=== PATIENT | female | born 1950 | race Caucasian/White ===

== ENCOUNTER 2021-02-24 11:14 | Inpatient (IN) | payer MEDICARE ==
[~2021-02-24] VITALS: Ht 154.9 cm; Wt 36.7 kg
--- NOTE | 2021-02-24 17:12 | EKG ---
[facility] [address] [facility] [place], [place] [address] Signed Normal sinus rhythm Anterior infarct , age undetermined Abnormal ECG No previous ECGs available Confirmed by SAMINA BROWN DO ([id number]) on 02/24/2021 5:12:48 PM Electronically Signed By: SAMINA BROWN DO 02/24/21 1712 PATIENT NAME: ALLAN LONDON Electrocardiogram DATE OF : 50 PHYSICIAN: SAMINA BROWN DO REPORT #: [id number] REPORT IS CONFIDENTIAL AND NOT TO BE RELEASED WITHOUT AUTHORIZATION
[2021-02-26] MEDS ORDERED: AMLODIPINE BESY10 MG PO (12:00)
[2021-02-26] MEDS ORDERED: METOPROLOL TART25 MG PO (12:00)
[2021-02-26] MEDS ORDERED: VITAMIN D3125 MCG PO (12:31)
[2021-02-26] MEDS ORDERED: CALCIUM500 MG PO (12:31)
[2021-02-26] MEDS ORDERED: MULTI VITAMIN1 EACH PO (12:31)
[2021-02-26] MEDS ORDERED: ZINC50 MG PO (12:32)
[2021-02-26] MEDS ORDERED: VITAMIN E400 UNI5 PO (12:32)
[2021-02-26] MEDS ORDERED: VITAMIN A10000 UNI2 PO (12:33)
[2021-02-26] MEDS ORDERED: FOLIC ACID0.4 MG PO (12:33)
[2021-02-26] MEDS ORDERED: VITAMIN B-121000 MCG PO (12:33)
== END 2021-02-26 13:18 | disposition home or self-care (01) | DRG 683 ==
LOC: ED 11:14 → MS 17:04
PROVIDERS: ADMIT Student in an Organized Health Care Education/Training Program; ATTEND Student in an Organized Health Care Education/Training Program
DX: N17.9 Acute kidney failure, unspecified (principal); R64 Cachexia; E83.52 Hypercalcemia; I10 Essential (primary) hypertension; R11.10 Vomiting, unspecified; R19.7 Diarrhea, unspecified; R63.0 Anorexia; U09.9 Post COVID-19 condition, unspecified; E83.41 Hypermagnesemia; Z98.890 Other specified postprocedural states; Z20.822 Contact with and (suspected) exposure to COVID-19; F17.210 Nicotine dependence, cigarettes, uncomplicated; D64.9 Anemia, unspecified; E87.5 Hyperkalemia; E86.0 Dehydration
CPT/HCPCS: 74176; 80048; 80053; 81001; 82570; 82803; 83690; 83735; 84156; 85025; 85651; 93005; 93010; 97161; C9803; J1644; J3480; J7060; J7121; U0003

== ENCOUNTER 2023-12-20 15:42 | Emergency (ER) | payer MEDICARE ==
[~2023-12-20] VITALS: Ht 154.9 cm; Wt 34.5 kg
[~2023-12-20 15:42] MED LIST: AMLODIPINE BESY10 MG PO; CALCIUM500 MG PO; FOLIC ACID0.4 MG PO; METOPROLOL TART25 MG PO; MULTI VITAMIN1 EACH PO; VITAMIN A10000 UNI2 PO; VITAMIN B-121000 MCG PO; VITAMIN D3125 MCG PO; VITAMIN E400 UNI5 PO; ZINC50 MG PO
[2023-12-20 16:49] LABS: BASOPHILS 0.7 % (0-2); EOSINOPHILS 0.5 % (0-6); HEMATOCRIT 34.1 % (35.0-50.0); HEMOGLOBIN 11.6 g/dL (12.0-18.0); LYMPHOCYTES 20.8 % (24-44); MCH 31.9 (27-36); MCHC 34.2 g/dl (30-36); MCV 93.4 fl (81-99); MONOCYTES 5.9 % (0-12); NEUTROPHILS 72.1 % (39-80); PLATELET COUNT 424 K/uL (140-440); RBC 3.65 M/ul (4.3-5.7); RDW 13.2 (10.5-15.0)
[2023-12-20 17:08] LABS: ALBUMIN/GLOBULIN RATIO 1.43 (1.1-2.4); BILIRUBIN, TOTAL 0.5 ng/dL (0.2-1.0); BUN/CREATININE RATIO 12.87 (6.0-28.6); CALCIUM 9.8 mg/dL (8.5-10.1); CREATININE, SERUM 1.01 mg/dL (0.55-1.02); MAGNESIUM 1.8 mg/dL (1.8-2.4); PROTEIN, TOTAL 6.8 g/dL (6.4-8.2)
[2023-12-20] MEDS ORDERED: SODIUM CHLORIDE 0.9% 1,000 ML IV ONE (17:15)
[2023-12-20 18:24] LABS: BILIRUBIN, URINE NEGATIVE (negative); BLOOD/HGB, URINE NEGATIVE (Negative); KETONE, URINE NEGATIVE (Negative); LEUK ESTERASE, URINE NEGATIVE (negative); NITRITE, URINE NEGATIVE (negative); PH, URINE 7.5 (5-7)
[2023-12-20] MEDS ORDERED: ONDANSETRON ODT8 MG PO (19:22)
[2023-12-20 19:46] VITALS: BP 151/93
--- NOTE | 2023-12-21 13:54 | EKG ---
[facility] [address] [facility] [place], [place] [address] Signed Sinus bradycardia Septal infarct (cited on or before 24-FEB-2021) Abnormal ECG When compared with ECG of 24-FEB-2021 13:56, T wave inversion no longer evident in Anterior leads Confirmed by Jo Payton MD ([id number]) on 12/21/2023 1:54:02 PM Electronically Signed By: JO PAYTON 12/21/23 1354 PATIENT NAME: JUAN JOSÉ LONDONVIRGIL CRUZ Electrocardiogram DATE OF : 50 PHYSICIAN: JO PAYTON REPORT #: [id number] REPORT IS CONFIDENTIAL AND NOT TO BE RELEASED WITHOUT AUTHORIZATION
== END 2023-12-20 19:38 | disposition home or self-care (01) ==
LOC: ED 15:42
PROVIDERS: Emergency Medicine
DX: R10.9 Unspecified abdominal pain (principal); R63.4 Abnormal weight loss; R11.2 Nausea with vomiting, unspecified; Z68.1 Body mass index [BMI] 19.9 or less, adult; Z79.899 Other long term (current) drug therapy
CPT/HCPCS: 36415; 71045; 80053; 81003; 83690; 83735; 84484; 85025; 93005; 93010; 96360; 96361; 99284-25; J7030

== ENCOUNTER 2024-02-08 12:33 | Day surgery (SDC) | payer MEDICARE ==
[2024-02-06 14:11] VITALS: BP 163/94
[~2024-02-08] VITALS: Ht 154.9 cm; Wt 28.5 kg
[~2024-02-08 12:33] MED LIST changes: +CELECOXIB200 MG PO; +IBLOOD GLUCOSE TEST STRIP 1 EA TEST VI PRN; +LACTATED RINGER'S 1,000 ML IV SCH; +LIDOCAINE HCL 1% 5 ML SDV INJ ONE; +OMEPRAZOLE20 MG PO; +ONDANSETRON ODT8 MG PO; +TRAMADOL HCL50 MG PO
[2024-02-08 13:04] VITALS: BP 153/83
[2024-02-08] MEDS ORDERED: LIDOCAINE HCL 2% 5 ML SDV ONE (13:19)
[2024-02-08] MEDS ORDERED: propofoL 200 MG/20 ML VIAL ONE (13:19)
[2024-02-08 15:04] VITALS: BP 121/80
--- NOTE | 2024-02-08 17:39 | NUR ---
02/08/24 1739 Dai Chavarria 1440 PT ARRIVED IN PACU SLEEPY. ABD SOFT. 1450 PT AWAKENS TO NOXIOUS STIMULI. 1500 SITTING UP IN BED TALKING TO STAFF. NO C/O'S. 1505 SIPPING ON WATER. 1510 DC INSTRUCTIONS GIVEN BY RN AND DR AT BEDSIDE. ALL QUESTIONS ANSWERED. 1518 LEFT VIA W/C.
--- NOTE | 2024-02-09 05:53 | OR ---
[facility] [address] [place], [place] [address] Signed DATE OF OPERATION: 02/08/2024 SURGEON: Abigail Edge MD PREOPERATIVE DIAGNOSES: 1. Gastroesophageal reflux disease. 2. Anorexia, weight loss, nausea, vomiting, bloating, and generalized abdominal pain. 3. Intermittent rectal bleeding. 4. Chronic constipation, now some diarrhea. POSTOPERATIVE DIAGNOSES: 1. Mild diffuse gastritis. 2. Moderate internal hemorrhoids. 3. Poor bowel prep. PROCEDURES: 1. Esophagogastroduodenoscopy with CLOtest and biopsies of the duodenum, antrum. 2. Sigmoidoscopy (40 cm). ESTIMATED BLOOD LOSS: None. 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 She worked at our [employer] for many years. She has a tremendous amount of experience. She is also suffering with significant rheumatoid arthritis and tells me she hurts from head to toe. She has been using tramadol on a regular basis. She has had trouble with acid reflux, but also generalized abdominal pain with bloating, anorexia, nausea, vomiting, and weight loss. In fact, she has lost 10 pounds in the last three weeks and she was in my office. She is extremely cachectic. There has basically no muscle mass on her body. She told me the constipation is chronic, but she has had some diarrhea as well. In June of this year, she had a CT scan done, apparently that was all negative. She had lots of supplements including her calcium. She got rid of all those and thought maybe it is a little better. There is always a chance she is having overflow incontinence. She then went to the emergency room earlier this year and a chest x-ray and blood work was unremarkable along with her urinalysis. She told me her mother had primary liver cancer. She is using a cane to ambulate because of the rheumatoid arthritis. She gives no family history of colon cancer or polyps. She has been asked to see me for both upper and lower endoscopy. She told me she has never had a previous colonoscopy. She also uses Celecoxib for arthritis and pain. Apparently, she had COVID back in 2020. Electronically Signed By: ABIGAIL EDGE MD 02/09/24 0553 PATIENT NAME: ALLAN LONDON OPERATIVE REPORT DATE OF : 50 REPORT #: [id number] PHYSICIAN: ABIGAIL EDGE MD PCP: MARIBEL GALEAS MD REPORT IS CONFIDENTIAL AND NOT TO BE RELEASED WITHOUT AUTHORIZATION [facility] [address] [place], [place] [address] Signed When we look she was 74 pounds in my office, she is down to 64 pounds over three weeks. Her body mass index is 14. In the office, I gave her pamphlets on both upper and lower endoscopy. We reviewed the nature of the two tests. There is risk including, but not limited to gas bloating, crampy abdominal pain, bleeding, perforation requiring surgery, and missed diagnosis. We also reviewed the written instructions for the bowel prep line by line. We decided she would do best with a full gallon of polyethylene glycol along with some Dulcolax tablets. She wants to do this over a day and half and stretched it out. She clearly needs monitored anesthesia care just given her frail nature. Also, she uses daily tramadol. She will need preop blood work and an EKG. That turned out well. She told me her brother would be taking her home afterwards. She had expressed understanding and wished to proceed. PROCEDURE IN DETAIL: Allan was taken into the endoscopy suite and placed in the supine semi-recumbent position. She was placed under monitored anesthesia care propofol infusion per our nurse receptionist. A bite block was utilized for the upper endoscopy. The adult gastroscope was introduced and advanced quite readily in the posterior oropharynx. The vocal cords and the retinoid were unremarkable. Scope passed nicely down the esophagus into the stomach out into the duodenum. The duodenum and pyloric channel were unremarkable. She does have some gastritis in her stomach with a little bit of blood. There were no ulcerations. Scope was then retroflexed and she has no hiatal hernia. We took a biopsy from the duodenum as well as the antrum for pathologic review. We took an additional biopsy from the antrum for CLOtest. The scope was withdrawn up through the area of the GE junction, which was compliant without stricture. Her GE junction is at 30 cm. Very minimal disruption to the Z-line. No Hughes's mucosa. No distal, middle or upper esophagitis. After this, the gas was suctioned out. The gastroscope removed. Allan tolerated the upper endoscopy quite well. Allan was then rotated into the left lateral decubitus position. It was quite remarkable to see her level of cachexia. There appears to be almost no muscle mass remaining. She really had no external hemorrhoids. A digital rectal exam was performed. No mass in the rectum. The pediatric colonoscope was introduced and advanced very carefully and very slowly. She had a lot of sticky mucus. We went very carefully around the rectosigmoid junction and we passed a couple of stool balls and made our way up to about 40 cm. We encountered another stool ball. We could not pass the scope any further. We then slowly withdrew the scope. We saw no diverticula. There were no masses. Once in the rectum, the scope was retroflexed. She does have minimal to moderate internal hemorrhoids. After this, the gas was suctioned out, colonoscope removed. Allan tolerated the procedure quite well. RECOMMENDATIONS: Allan can follow up my office in 7 to 14 days to review her results. Electronically Signed By: ABIGAIL EDGE MD 02/09/24 0553 PATIENT NAME: ALLAN LONDON OPERATIVE REPORT DATE OF : 50 REPORT #: [id number] PHYSICIAN: ABIGAIL EDGE MD PCP: MARIBEL GALEAS MD REPORT IS CONFIDENTIAL AND NOT TO BE RELEASED WITHOUT AUTHORIZATION [address] [address] Signed Abigail Edge MD ALB/UCHE /[id number] cc: MD Abigail Roberson MD Copies: MARIBEL GALEAS MD, ANDREW L MD ~ Electronically Signed By: ABIGAIL EDGE MD 02/09/24 0553 PATIENT NAME: ALLAN LONDON OPERATIVE REPORT DATE OF : 50 REPORT #: [id number] PHYSICIAN: ABIGAIL EDGE MD PCP: MARIBEL GALEAS MD REPORT IS CONFIDENTIAL AND NOT TO BE RELEASED WITHOUT AUTHORIZATION
--- NOTE | 2024-02-13 17:53 | PATH ---
[facility] [address] [place], [place] [address] Signed SPECIMEN(S): A DUODENAL BIOPSY SPECIMEN(S): B ANTRUM/PYLORUS BIOPSY SPECIMEN SOURCE: A. DUODENAL BIOPSY B. ANTRUM/PYLORUS BIOPSY CLINICAL HISTORY: N/o, weight loss, anorexia, constipation, diarrhea, postop; distal gastritis, internal hemorrhoids FINAL PATHOLOGIC DIAGNOSIS: A. Duodenum, biopsy: - No significant histopathology. B. Stomach, antrum/pylorus, biopsy: - No significant histopathologic alterations. COMMENT: The sections from the duodenal biopsy show portions of duodenal mucosa with long fingerlike villi. There is no villous atrophy, crypt hyperplasia or intraepithelial lymphocytosis making a diagnosis of celiac disease unlikely. There is no evidence of peptic duodenitis, microorganisms, abnormal infiltrates or neoplasia. The sections through the gastric biopsies show fragments of histologically unremarkable antral mucosa. There is no evidence of acute or chronic inflammation. There is no evidence of H. pylori, intestinal metaplasia, abnormal infiltrates or neoplasia. K MICROSCOPIC EXAMINATION: Histologic sections of all submitted blocks are examined by light microscopy. These findings, together with the gross examination, support the pathologic diagnosis. GROSS DESCRIPTION: A. The specimen, labeled and designated "Laib, P, per the requisition duodenal biopsy," is received in formalin and consists of two head soft tissue fragments, ranging from 0.2-0.3 cm. Entirely submitted in (A1). B. The specimen, labeled and designated "Laib, P, per the requisition antrum/pylorus biopsy," is received in formalin and consists of one head soft PATIENT NAME: ALLAN LONDON PATHOLOGY DATE OF : 50 REPORT #: [id number] PHYSICIAN: ABHINAVAbyz PATHOLOGY PCP: MARIBEL GALEAS MD REPORT IS CONFIDENTIAL AND NOT TO BE RELEASED WITHOUT AUTHORIZATION [facility] [address] [place], [place] [address] Signed tissue fragment, 0.3 cm. Entirely submitted in (B1). AB (under the direct supervision of a pathologist) The Gross Description was prepared using a voice recognition system. The report was reviewed for accuracy; however, sound-alike word errors, addition and/or deletions may occur. If there is any question about this report, please contact Client Services. ADDITIONAL NOTES: Immunohistochemical and/or in situ hybridization studies if performed in this case included appropriate positive controls that reacted as expected. This test was developed and its performance characteristics determined by [facility]. It has not been cleared or approved by the U.S. Food and Drug Administration. The FDA has determined that such clearance or approval is not necessary. This test is used for clinical purposes. It should not be regarded as investigational or for research. [facility] is certified under the Clinical Laboratory Improvement Amendments of 1988 (CLIA) as qualified to perform high complexity clinical laboratory testing. PERFORMING LABORATORY: Technical component was performed by [facility], [address] [place] [id number] (CLIA# [id number]). Professional interpretation was performed by [facility], [address] [facility], [address] Room [address] [place] [id number] (CLIA#: [id number]). Diagnostician: Richard Stephens MD Pathologist Electronically Signed 02/13/2024 Copies: ~ PATIENT NAME: LITAALLANVIRGIL CRUZ PATHOLOGY DATE OF : 50 REPORT #: [id number] PHYSICIAN: ANGÉLICA PATHOLOGY PCP: MARIBEL GALEAS MD REPORT IS CONFIDENTIAL AND NOT TO BE RELEASED WITHOUT AUTHORIZATION
== END 2024-02-08 15:18 | disposition home or self-care (01) ==
LOC: DS 12:33
PROVIDERS: ATTEND Colon & Rectal Surgery
PROC: 0DJD8ZZ Inspection of Lower Intestinal Tract, Via Natural or Artificial Opening Endoscopic (ICD-10-PCS; 2024-02-08)
PROC: 0DB98ZX Excision of Duodenum, Via Natural or Artificial Opening Endoscopic, Diagnostic (ICD-10-PCS; principal; 2024-02-08 13:10)
PROC: 0DB68ZX Excision of Stomach, Via Natural or Artificial Opening Endoscopic, Diagnostic (ICD-10-PCS; 2024-02-08 13:10)
DX: K29.70 Gastritis, unspecified, without bleeding (principal); K64.8 Other hemorrhoids; K59.09 Other constipation; K21.9 Gastro-esophageal reflux disease without esophagitis; M06.9 Rheumatoid arthritis, unspecified; I12.9 Hypertensive chronic kidney disease with stage 1 through stage 4 chronic kidney disease, or unspecified chronic kidney disease; N18.9 Chronic kidney disease, unspecified; D63.1 Anemia in chronic kidney disease; F17.210 Nicotine dependence, cigarettes, uncomplicated; R64 Cachexia; Z68.1 Body mass index [BMI] 19.9 or less, adult; Z79.1 Long term (current) use of non-steroidal anti-inflammatories (NSAID); Z79.899 Other long term (current) drug therapy
CPT/HCPCS: 00813; 36415; 87077; 88305; J2704; J7121

== ENCOUNTER 2024-02-15 14:59 | Inpatient (IN) | payer MEDICARE ==
[~2024-02-15] VITALS: Ht 154.9 cm; Wt 31.0 kg
[~2024-02-15 14:59] MED LIST changes: -IBLOOD GLUCOSE TEST STRIP 1 EA TEST VI PRN; -LACTATED RINGER'S 1,000 ML IV SCH; -LIDOCAINE HCL 1% 5 ML SDV INJ ONE
[2024-02-15 16:30] LABS: BASOPHILS 0.3 % (0-2); EOSINOPHILS 0.2 % (0-6); HEMATOCRIT 40.5 % (35.0-50.0); HEMOGLOBIN 13.9 g/dL (12.0-18.0); LYMPHOCYTES 18.6 % (24-44); MCH 32.2 (27-36); MCHC 34.3 g/dl (30-36); MCV 93.8 fl (81-99); NEUTROPHILS 75.9 % (39-80); PLATELET COUNT 285 K/uL (140-440); RBC 4.32 M/ul (4.3-5.7); RDW 13.3 (10.5-15.0)
[2024-02-15 16:50] LABS: ALBUMIN 3.4 g/dL (3.4-5.0); ALBUMIN/GLOBULIN RATIO 1.21 (1.1-2.4); ANION GAP 8.8 (7-21); BILIRUBIN, TOTAL 0.2 ng/dL (0.2-1.0); BUN/CREATININE RATIO 23.63 (6.0-28.6); CREATININE, SERUM 1.1 mg/dL (0.55-1.02); MAGNESIUM 2.4 mg/dL (1.8-2.4); POTASSIUM 3.8 mmol/L (3.5-5.1); PROTEIN, TOTAL 6.2 g/dL (6.4-8.2)
[2024-02-15] MEDS ORDERED: DEXAMETHASONE SOD PHOS 10 MG/ML VIAL IV ONE (18:30)
[2024-02-15] MEDS ORDERED: PREDNISONE20 MG PO (18:38)
[2024-02-15] MEDS ORDERED: ondansetron HCL 4 MG/2 ML VIAL IV PRN (20:15)
[2024-02-15] MEDS ORDERED: ACETAMINOPHEN 325 MG TAB PO PRN (20:15)
[2024-02-15] MEDS ORDERED: LACTATED RINGER'S 1,000 ML IV SCH (20:15)
[2024-02-15] MEDS ORDERED: ENOXAPARIN SODIUM 30 MG/0.3 ML SYR SUB-Q SCH (20:23)
[2024-02-15] MEDS ORDERED: POLYETHYLENE GLYCOL 3350 BOTTLE PO SCH (20:26)
[2024-02-15] MEDS ORDERED: DOCUSATE SODIUM 100 MG CAP PO SCH (21:00)
[2024-02-15] MEDS ORDERED: SENNOSIDES 1 TAB PO SCH (21:00)
[2024-02-15 21:36] VITALS: BP 115/93
--- NOTE | 2024-02-15 21:43 | NUR ---
dr quintero called (per his request) and made aware pt arrived to ms ro, no new orders received at this time.
--- NOTE | 2024-02-15 22:34 | NUR ---
PATIENT ARRIVED TO THE FLOOR VIA STRETCHER. PATIENT ABLE TO SCOOT FROM STRETCHER TO HOSPITAL BED. PATIENTS VITALS TAKEN AND RECORDED. PATIENT DENIES THE NEED TO VOID AT THIS TIME. ADMISSION COMPLETED. ASSESMENT COMPLETED. PATIENTS IV INFUSING PER ORDER. PATIENTS PM MEDS GIVEN PER ORDER. VAULT KEEPER NOTIFIED FOR MIRALAX TO BE MIXED. DISCUSSED PLAN OF CARE WITH PATIENT AND ALL QUESTIONS ASNWERED. PATIENTS FAMILY AT BEDISDE. PATIENT DENIES ANY FURTHER NEEDS. CALL LIGHT IN REACH. ICE WATER AND WARM BLANKETS PROVIDED.
--- NOTE | 2024-02-15 23:15 | NUR ---
METAL FLOORING INSTALLER BROUGHT BSC INTO ROOM. METAL FLOORING INSTALLER 1PA TO BS. PT VOIDED AND GIVEN NEW PAD FOR UNDERWEAR. PT ASSISTED BACK TO BED. OUTPUT MEASURED. PT STATES NO FURTHER NEEDS AT THIS TIME. CALL LIGHT WITHIN REACH.
[2024-02-15 23:50] VITALS: BP 115/93
[2024-02-16] VITALS (10 sets, daily range): BP systolic 108–150; BP diastolic 66–95
--- NOTE | 2024-02-16 00:01 | NUR ---
PATIENT IS RESTING IN BED DRINKING MIRALAX IN [facility]. PATIENT DENIES ANY NEEDS. CALL LIGHT IN REACH. IV INFUSING PER ORDER.
--- NOTE | 2024-02-16 02:01 | NUR ---
PATIENT ASSISTED TO [facility] A SBA. PATIENT ABLE TO VOID. PATIENT IS BACK IN BED RESTING. PATIENT RATES ABD PAIN AT A 3/10. PATIENT NOT DUE FOR TYLENOL AT THIS TIME. PATIENT PROVIDED WARM PACK. PATIENT DENIES ANY NAUSEA. FRESH WATER PROVIDED. CALL LIGHT IN REACH. IV INFUSING PER ORDER. PATIENT DENIES ANY FURTHER NEEDS.
--- NOTE | 2024-02-16 04:00 | NUR ---
PATIENT IS RESTING IN BED WITH EYES CLSOED, RR 15. CALL LIGHT IN REACH. IV INFUSING PER ORDER.
[2024-02-16 05:51] LABS: BASOPHILS 0.4 % (0-2); EOSINOPHILS 0.1 % (0-6); HEMATOCRIT 38.8 % (35.0-50.0); HEMOGLOBIN 13.1 g/dL (12.0-18.0); LYMPHOCYTES 20.5 % (24-44); MCHC 33.9 g/dl (30-36); MCV 94.4 fl (81-99); MONOCYTES 3.4 % (0-12); NEUTROPHILS 75.6 % (39-80); PLATELET COUNT 286 K/uL (140-440); RBC 4.11 M/ul (4.3-5.7); RDW 13.4 (10.5-15.0)
[2024-02-16 06:06] LABS: ANION GAP 8.2 (7-21); BUN/CREATININE RATIO 25.3 (6.0-28.6); CALCIUM 8.7 mg/dL (8.5-10.1); CREATININE, SERUM 0.83 mg/dL (0.55-1.02); POTASSIUM 4.2 mmol/L (3.5-5.1)
--- NOTE | 2024-02-16 06:12 | NUR ---
PATIENTS AM MEDS GIVEN PER ORDER. PATIENT RATES PAIN AT A 6/10 "ALL OVER", PRN MEDS GIVEN PER ORDER. PATIENT GIVEN ENEMA PER ORDER. PATIENT EDUCATED TO STAY ON SIDE FOR 30 MIN. PATIENT VERBALIZES UNDERSTANDING. PATIENTS CALL LIGHT IN REACH. IV INFUSING PER ORDER.
--- NOTE | 2024-02-16 06:56 | NUR ---
CALL LIGHT ANSWERED. PT NEEDED TO HAVE A BM AFTER ENEMA. SPECIFICATIONS WRITER AND QUALITY ASSOCIATE PLACE PT ON BED TIDWELL AND HOB RAISED. PT INSTRUCTED TO CALL WHEN FINISHED. PT USED CALL LIGHT INSTRUCTED. PT STATES SHE WOULD LIKE TO SIT ON THE BSC. QUALITY ASSOCIATE AND SPECIFICATIONS WRITER ASSISTED PT TO BSC. PT HAD SMALL BM. PT GIVEN NEW BREIF AND NEW CHUX PLACED ON BED. PT ASSISTED WITH CLEANING AND ASSISTED BACK INTO BED. PT STATES NO FURTHER NEEDS AT THIS TIME AND CALL LIGHT WITHIN REACH.
[2024-02-16] MEDS ORDERED: SOD PHOSPHATE/SOD BIPHOSPHATE 132 ML BTL PR ONE (07:00)
--- NOTE | 2024-02-16 07:40 | NUR ---
RECEIVED REPORT FROM KRISTINE FELIPE. PT UP TO BSC, BACK TO BED WITH DEPENDS IN PLACE. PT SON AT THE BEDSIDE. PT STATES NO CURRENT NEEDS. CALL LIGHT WITHIN REACH.
--- NOTE | 2024-02-16 08:01 | NUR ---
UR CLINICAL REVIEW: 2MN [facility] INPT FOR STEROCORAL COLITIS MEDICARE INPT 02/15/242022 ORDER MATCHES REG NO AUTH REQUIRED PER MEDICARE RULES PLAN TO DC TO HOME WHEN STABLE, LIKELY 1-2 DAYS.
[2024-02-16] MEDS ORDERED: LEVOTHYROXINE SODIUM 50 MCG TAB PO SCH (08:20)
--- NOTE | 2024-02-16 08:47 | NUR ---
PATIENT IN BED AT THIS TIME. CRIME LABORATORY ANALYST WENT INTO PATIENT ROOM TO DO PATIENT ROUNDS. CALL LIGHT WITHIN REACH, NO FURTHER NEEDS AT THIS TIME.
[2024-02-16] MEDS ORDERED: CELECOXIB200 MG PO (08:49)
[2024-02-16] MEDS ORDERED: AMLODIPINE BESY10 MG PO (08:49)
[2024-02-16] MEDS ORDERED: POLYETHYLENE GLYCOL 3350 1 PACKET PO SCH (09:00)
--- NOTE | 2024-02-16 10:15 | NUR ---
PATIENT IN BED AT THIS TIME. POST HOLE DIGGING MACHINE OPERATOR ASSISTED PATIENT TO BEDSIDE COMMODE AND THEN BACK TO BED, POST HOLE DIGGING MACHINE OPERATOR ALSO CHARTED VITALS AND I&O'S. PATIENT HAD SOME DROPS OF BLOOD IN STOOL. RN HAS BEEN NOTIFIED. CALL LIGHT WITHIN REACH, NO FURTHER NEEDS AT THIS TIME.
--- NOTE | 2024-02-16 10:43 | NUR ---
VISITED DURING SPIRITUAL CARE ROUNDS. PT RELAYED INFORMATION FROM CARE TEAM, APPEARED TO BE IN OVERALL GOOD SPIRITS, NO IMMEDIATE NEEDS. STUDENT SERVICES REP PROVIDED SUPPORTIVE PRESENCE, HOSPITALITY, PRAYER. PT EXPRESSED GRATITUDE FOR VISIT.
[2024-02-16 11:09] LABS: BILIRUBIN, URINE NEGATIVE (negative); BLOOD/HGB, URINE LARGE (Negative); KETONE, URINE NEGATIVE (Negative); LEUK ESTERASE, URINE MODERATE (negative); NITRITE, URINE NEGATIVE (negative)
[2024-02-16 11:20] LABS: CRYSTALS, URINE NONE SEEN (0-1+); EPITHELIAL CELLS, URINE 0 /lpf (0-1+); RED BLOOD CELLS, URINE >50 /hpf (0-5)
[2024-02-16 11:21] LABS: BACTERIA, URINE 2+ /hpf (negative); CASTS, URINE NONE SEEN \\lpf; COLLECTION TYPE, URINE CLEAN CATCH; REFLEX CULTURE, URINE Yes (No)
--- NOTE | 2024-02-16 11:37 | NUR ---
PATIENT IN BED AT THIS TIME. HIGH REACH OPERATOR TRIED TO USE ER DONNY STRETCHER ALARM BUT PATIENT WAS NOT HEAVY ENOUGH FOR THE ALARM. HIGH REACH OPERATOR NOTIFIED RN. CALL LIGHT WITHIN REACH, NO FURTHER NEEDS AT THIS TIME.
--- NOTE | 2024-02-16 11:49 | NUR ---
ALERT AND ORIENTED IN BED. SON IN HER ROOM WELL. PATIENT LIVES ALONE IN HOUSE, 2 STEPS TO GET INSIDE THAT SHE STATES SHE HAS NO ISSUES WITH. USES A CANE, NO OTHER DME AT THIS TIME. PATIENT DRIVES. SHE STATES SOME MONTHS ARE HARDER THAN OTHER TO PAY FOR UTILITIES, FOOD, MEDICATIONS, BUT SHE GETS BY. SON CONCERNED ABOUT PATIENT LIVING ALONE AND POTENTIAL FOR FALLS WITHOUT ABILITIY TO CALL FOR HELP. DISCUSSED LIFE ALERT AND SIMILAR SYSTEMS. EXAMPLES OF SYSTEMS PROVIDED. PATIENT DENIES OTHER NEEDS.
[2024-02-16] MEDS ORDERED: PHARMACY RENAL DOSE ADJUSTMENT 1 DOSE MISC PO SCH (12:00)
[2024-02-16] MEDS ORDERED: ONDANSETRON HCL4 MG PO (12:36)
--- NOTE | 2024-02-16 12:38 | NUR ---
MED REC COMPLETE
--- NOTE | 2024-02-16 14:59 | NUR ---
CONSULT RECEIVED FOR DIET EDUCATION ON HIGHER FIBER DIET TO PREVENT CONSTIPATION. PATIENT IS LAYING IN BED AWAKE, ALERT, AND ORIENTED. 3 MALE VISITORS IN THE ROOM. I ASKED IF IT WAS OK TO GIVE INFORMATION ON HOW TO INCREASE FIBER IN HER DIET AND SHE SAID YES. AFTER DISCUSSING ADDING 2-3 FRUITS AND 2-3 VEGGIES A DAY, OR EATING 2-3 PRUNES OR ADDING ALL BRAN CEREAL TO HER YOGURT, THE PATIENT STATED THAT SHE IS AFRAID TO EAT MORE BECAUSE OF THE PAIN IN HER COLON. ONE OF THE VISITORS ASKED WHAT SHE SHOULD EAT IN ORDER TO GAIN WEIGHT. I EXPLAINED GOOD QUALITY CALORIES AND PROTEIN, SUCH EGGS WITH CHEESE OR AVOCADO, POTATOES WITH CHEESE OR BUTTER, PEANUT BUTTER, ETC. PATIENT DOES DRINK AN ENSURE FOR BREAKFAST AT HOME. SHE INQUIRED ABOUT A TUBE FEEDING AND SAID SHE WILL ASK THE DOCTOR ABOUT THIS TOMORROW. SHE IS VERY THIN AND FRAIL. SHE HAS SEVERE MUSCLE LOSS AND FAT DEPLETION. SHE HAS LOST ~92 LBS IN THE LAST 6 MONTHS PER THE H&P (NORMAL WEIGHT WAS 160 LBS). THIS IS CONCERNING FOR SURE. PATIENT CURRENTLY ON CLEAR LIQUID DIET. HANDOUT ON HIGH- FIBER NUTRITION THERAPY PROVIDED. WILL FOLLOW UP TOMORROW ON THE PLAN FOR NUTRITION GOING FORWARD.
--- NOTE | 2024-02-16 15:20 | NUR ---
PT STATES PAIN IS 9/10 AT THIS TIME. PT VERBALIZES UNDERSTANDING OF NOT HAVING MORE THAN TYLENOL FOR PHARMACOLOGIC PAIN CONTROL. NON-PHARMACOLOGIC OPTIONS GIVEN TO PT, PT REQUESTS HEAT PACK, GIVEN. PT STATES NO FURTHER NEEDS AT THIS TIME, CALL LIGHT WITHIN REACH.
--- NOTE | 2024-02-16 15:26 | NUR ---
PATIENT IN BED AT THIS TIME. COMMISSARY SUPERINTENDENT ASSISTED PATIENT TO BEDSIDE COMMODE AND CHARTED PATIENTS VITALS AND I&O'S. COMMISSARY SUPERINTENDENT ALSO CHARTED PATIENTS VOIDINGS ON CHART IN ROOM. CALL LIGHT WITHIN REACH, NO FURTHER NEEDS AT THIS TIME.
--- NOTE | 2024-02-16 16:21 | NUR ---
PATIENT IN BED AT THIS TIME. AUDIO VISUAL SECRETARY ASSISTED PATIENT TO BEDSIDE COMMODE. AUDIO VISUAL SECRETARY CHARTED VOIDINGS IN ROOM. CALL LIGHT WITHIN REACH, NO FURTHER NEEDS AT THIS TIME.
--- NOTE | 2024-02-16 18:30 | NUR ---
DR CORTES NOTIFIED OF PT HAVING SM AMT OF BLOODY DRAINAGE ON [place] PAD.
--- NOTE | 2024-02-16 18:44 | NUR ---
PATIENT IN BED AT THIS TIME. TELEVISION INSTALLER HELPER CHARTED PATIENTS VITALS AND I&O'S. PATIENT TOLD TELEVISION INSTALLER HELPER THAT SHE WAS "PLANNING ON LEAVING IN THE MORNING" AND TELEVISION INSTALLER HELPER NOTIFIED RN. CALL LIGHT WITHIN REACH, NO FURTHER NEEDS AT THIS TIME.
--- NOTE | 2024-02-16 18:49 | NUR ---
THIS RN DISCUSSES POC WITH PT D/T PT HAVING QUESTIONS. PT STATES SHE IS NOT HAVING ANY ITCHING OR BURNING WITH URINATION, STATES SHE BELIEVES THE BLEEDING SHE HAS EXPERIENCED IS FROM THE RECTUM, STATES "I THINK IT MIGHT BE FROM STRAINING". PT REQUESTS MORE ICE WATER, GIVEN. PT STATES NO FURTHER NEEDS AT THIS TIME, CALL LIGHT WITHIN REACH.
--- NOTE | 2024-02-16 19:29 | NUR ---
Received report from KRISTINE Cerna. White board updated. Denies needs. Call light within reach.
--- NOTE | 2024-02-16 20:00 | NUR ---
PT RESTING IN BED. DENIES PAIN. VSS. ASSISTED PT TO USE BSC, 1 CGA. PT RESTLESS AND REQUIRES FREQUENT CUEING FOR SAFETY. LSC. HRR. BTA. REPORTS HEARTBURN, WILL ORDER NIO MAALOX. PT HAD SM LOOSE BM ON BSC. SMALL AMT BLOOD NOTED TO TP. LFA IV INFUSING LR. PT IS VERY SKINNY. SKIN INTACT TO SPINE AND COCCYX. SON AT BEDSIDE. CALL LIGHT WITHIN REACH.
[2024-02-16] MEDS ORDERED: MAGNESIUM HYDROXIDE/AL HYDROX 30 ML CUP PO PRN (20:30)
--- NOTE | 2024-02-16 22:31 | NUR ---
SKIN ASSESSMENT DONE W/ KRISTINE VELASQUEZ. SKIN NOTED TO BE INTACT. NO AREAS OF CONCERN.
--- NOTE | 2024-02-16 22:31 | NUR ---
CALL LIGHT ANSWERED. PT STATED THAT SHE NEEDED TO USE BATHROOM. COMMUNITY SERVICE OFFICER 1PA TO BSC. COMMUNITY SERVICE OFFICER CHANGED PT ATTENDS. PT VOIDED. RN NOTIFED THAT THERE IS SOME BLOOD IN URINE. PT ASSISTED BACK TO BED. PT BROUGHT JELLO UPON REQUEST. PT STATES NO FURTHER NEEDS AT THIS TIME. CALL LIGHT WITHIN REACH AND SON IN ROOM.
--- NOTE | 2024-02-16 23:47 | NUR ---
CALL LIGHT ANSWERED. PT NEEDED TO USE BATHROOM. CLINICAL TRIAL ASSOCIATE 1PA TO BSC. PT VOIDED AND ASSISTED BACK TO BED. PT GIVEN JELLO UPON REQUEST. PT STATED THAT IV "FELT LOOSE". RN NOTIFED. PT STATES NO FURTHER NEEDS AT THIS TIME. CALL LIGHT WITHIN REACH.
--- NOTE | 2024-02-16 23:54 | NUR ---
PT AWAKE, USED BSC W/ TICKET TAKER. REPORTS ISSUE W/ IV. RN IN TO ASSESS, IV JUST NEEDS RETAPED. WRAPPED W/ COBAN PER PT REQUEST. SON ASLEEP AT BEDSIDE. CALL LIGHT WITHIN REACH.
--- NOTE | 2024-02-17 00:44 | NUR ---
CALL LIGHT ANSWERED. PT NEEDED TO USE BATHROOM. EMERGENCY COMMUNICATIONS DISPATCHER 1PA TO BSC. PT VOIDED AND GIVEN NEW ATTENDS. PT ASSISTED BACK TO BED. OUTPUT MEAUSRED PT ASKED FOR BLANK SHEETS OF PAPER. EMERGENCY COMMUNICATIONS DISPATCHER GAVE PT PAPER. PT STATES NO FURTHER NEEDS AT THIS TIME. CALL LIGHT WITHIN REACH.
--- NOTE | 2024-02-17 01:18 | NUR ---
PT APPEARS ASLEEP. SON AT BEDSIDE. APPEARS COMFORTABLE. CALL LIGHT WITHIN REACH.
--- NOTE | 2024-02-17 01:46 | NUR ---
CALL LIGHT ANSWERED. PT NEEDED TO USE BATHROOM. CAN 1PA TO BSC. PT VOIDED AND WAS ASSISTED BACK TO BED. PT GIVEN WARM BLANKET UPON REQUEST. PT STATES NO FURTHER NEEDS AT THIS TIME. CALL LIGHT WITHIN REACH.
--- NOTE | 2024-02-17 03:10 | NUR ---
UP TO BSC TO VOID W/ 1 CGA AND SAFETY CUEING. ADMINISTERED PRN MAALOX FOR C/O HEARTBURN. BED ALARM IN PLACE. CALL LIGHT WITHIN REACH.
--- NOTE | 2024-02-17 04:15 | NUR ---
SON STAYED AT BEDSIDE OVERNIGHT. [facility] BS USE-NEEDS SAFETY CUEING. DENIES PAIN. PRN MAALOX OVERNIGHT FOR C/O HEARTBURN. IVF INFUSING. CL LIQ DIET.
[2024-02-17 05:04] VITALS: BP 160/79
[2024-02-17 05:07] VITALS: BP 160/79
--- NOTE | 2024-02-17 05:07 | NUR ---
CALL LIGHT ANSWERED. PT NEEDED TO USE BATHROOM. DEDICATED OWNER OPERATOR 1PA TO BS. PT VOIDED AND GIVEN NEW ATTENDS. PT THEN ASSITED BACK TO BED. DEDICATED OWNER OPERATOR OBTAINED VITALS AND I&O. PT STATES NO FURTHER NEEDS AT THIS TIME. CALL LIGHT WITHIN REACH.
[2024-02-17 05:57] LABS: BASOPHILS 0.5 % (0-2); EOSINOPHILS 0.7 % (0-6); HEMATOCRIT 40.2 % (35.0-50.0); HEMOGLOBIN 13.6 g/dL (12.0-18.0); LYMPHOCYTES 23.4 % (24-44); MCH 32.1 (27-36); MCHC 33.9 g/dl (30-36); MCV 94.5 fl (81-99); MONOCYTES 6.1 % (0-12); NEUTROPHILS 69.3 % (39-80); PLATELET COUNT 296 K/uL (140-440); RBC 4.26 M/ul (4.3-5.7)
[2024-02-17 06:10] LABS: ANION GAP 11.4 (7-21); BUN/CREATININE RATIO 15.62 (6.0-28.6); CALCIUM 8.6 mg/dL (8.5-10.1); CREATININE, SERUM 0.64 mg/dL (0.55-1.02); POTASSIUM 3.4 mmol/L (3.5-5.1)
--- NOTE | 2024-02-17 06:58 | NUR ---
PT REFUSING AM THYROID MED, STATES SHE HAS NEVER TAKEN BEFORE AND WANTS TO CLARIFY W/ MD BEFORE STARTING. WARM BLANKET GIVEN. NO FURTHER COMPLAINTS.
--- NOTE | 2024-02-17 07:15 | NUR ---
RECEIVED REPORT FROM KRISTINE RACHEL. PT AWAKE IN BED, USES CALL LIGHT TO USE BSC, SN TO BEDSIDE TO ASSIST PT TO BSC, PT BACK TO BED AFTER USING BSC. CALL LIGHT WITHIN REACH.
--- NOTE | 2024-02-17 08:13 | NUR ---
PATIENT IN BED AT THIS TIME. CRNP WENT INTO PATIENTS ROOM TO DO ROUNDINGS. CALL LIGHT WITHIN REACH, NO FURTHER NEEDS AT THIS TIME.
[2024-02-17] MEDS ORDERED: POTASSIUM CHLORIDE 10 MEQ TABCR PO ONE (08:15)
[2024-02-17] MEDS ORDERED: ENOXAPARIN SODIUM 40 MG/0.4 ML SYR SUB-Q SCH (09:00)
[2024-02-17] MEDS ORDERED: POLYETHYLENE GLYCOL 3350 1 PACKET PO SCH (09:00)
[2024-02-17 09:11] VITALS: BP 134/77
--- NOTE | 2024-02-17 09:58 | NUR ---
NO CASE MANAGEMENT NEEDS AT THIS TIME. IMM LETTER DISCUSSED AND COPY PROVIDED.
--- NOTE | 2024-02-17 10:12 | NUR ---
PATIENT IN BED AT THIS TIME. DIE REPAIR MACHINIST CHARTED VITALS AND I&O'S. CALL LIGHT WITHIN REACH, NO FURTHER NEEDS AT THIS TIME.
[2024-02-17 11:06] VITALS: BP 134/77
[2024-02-17] MEDS ORDERED: HEALTHYLAX17 GM PO (11:30)
[2024-02-17] MEDS ORDERED: SENNA LAX8.6 MG PO (11:30)
[2024-02-17] MEDS ORDERED: DOCUSATE SODIU100 MG PO (11:30)
[2024-02-17] MEDS ORDERED: PAIN RELIEF650 MG PO (11:33)
--- NOTE | 2024-02-17 11:51 | NUR ---
PT NOT AVIALABLE FOR VISIT. PROVIDED PRAYER.
[2024-02-17 12:52] VITALS: BP 165/92
== END 2024-02-17 13:30 | disposition home or self-care (01) | DRG 392 ==
LOC: ED 14:59 → MS 20:37
PROVIDERS: Emergency Medicine; ADMIT Student in an Organized Health Care Education/Training Program; ATTEND Family Medicine
DX: K52.89 Other specified noninfective gastroenteritis and colitis (principal); M47.10 Other spondylosis with myelopathy, site unspecified; R64 Cachexia; Z68.1 Body mass index [BMI] 19.9 or less, adult; I10 Essential (primary) hypertension; K59.00 Constipation, unspecified; Z66 Do not resuscitate; E87.6 Hypokalemia; F17.200 Nicotine dependence, unspecified, uncomplicated
CPT/HCPCS: 36415; 71260; 74177; 80048; 80053; 81001; 83735; 84439; 84443; 84484; 85025; 85651; 86140; 86141; 87088; A9270; J1100; J1650; J2405; J7121; Q9967